=== PATIENT | male | born 1995 | race Caucasian/White ===

== ENCOUNTER 2016-07-14 01:05 | Emergency (ER) | payer OTHER ==
[~2016-07-14] VITALS: Ht 185.4 cm; Wt 84.0 kg
[2016-07-14 02:00] VITALS: BP 148/89; PULSE 86; RESP 18; TEMP 98.5; O2SAT 99
[2016-07-14] MEDS ORDERED: LIDOCAINE HCL 1% 30 ML VIAL INFIL ONE (02:45)
[2016-07-14] MEDS ORDERED: LIDOCAINE HCL 1% 50 ML VIAL INFIL ONE (02:45)
[2016-07-14] MEDS ORDERED: LIDOCAINE 1%/EPINEPHrine 1:100,000 SOLN 30 ML VIAL INFIL ONE (02:45)
[2016-07-14 03:10] VITALS: BP 161/98; PULSE 76; RESP 18; O2SAT 99
--- NOTE | 2016-07-14 03:42 | PD ---
HPI Chief Complaint: Laceration/Skin Injury Time Seen by Provider: 02:32 Travel History International Travel<30 days: No Contact w/Intl Traveler<30days: No Traveled to known affect area: No History of Present Illness HPI Patient is a 21-year-old male who presents to emergency room with complaints of lacerations to his left hand. Patient reports that he cut his hand on a piece of glass 1 hour prior to arrival to the emergency room. Patient reports that he is right-hand dominant. Reports that his tetanus is up-to-date. PFSH Past Medical History Medical History: Denies Significant Hx Diminished Hearing: No Tetanus Vaccination: < 5 Years Influenza Vaccination: No Past Surgical History Surgical History: No Previous Surgery Social History Alcohol Use: No Tobacco Use: No Substance Use: No Allergies-Medications (Allergen,Severity, Reaction): Coded Allergies: No Known Allergies (Unverified , 07/14/16) Reported Meds & Prescriptions Reported Meds & Active Scripts Active Ibuprofen 600 Mg Tab 600 Mg PO Q6H PRN Keflex (Cephalexin) 500 Mg Cap 500 Mg PO Q6H 7 Days Review of Systems General / Constitutional: No: Fever Eyes: No: Visual changes HENT: No: Headaches Cardiovascular: No: Chest Pain or Discomfort Respiratory: No: Shortness of Breath Gastrointestinal: No: Abdominal Pain Genitourinary: No: Dysuria Musculoskeletal: No: Pain Skin: Positive Other (hand laceration), No Rash Neurologic: No: Weakness Psychiatric: No: Depression Endocrine: No: Polydipsia Hematologic/Lymphatic: No: Easy Bruising Physical Exam Narrative GENERAL: Well-nourished, well-developed patient. SKIN: Warm and dry. HEAD: Normocephalic. EYES: No scleral icterus. No injection or drainage. NECK: Supple, trachea midline. No JVD or lymphadenopathy. CARDIOVASCULAR: Regular rate and rhythm without murmurs, gallops, or rubs. RESPIRATORY: Breath sounds equal bilaterally. No accessory muscle use. GASTROINTESTINAL: Abdomen soft, non-tender, nondistended. MUSCULOSKELETAL: No cyanosis, or edema. Left hand: Pulses intact, neurovascularly intact, patient with 2 cm laceration over the knuckle of digit #4, patient with 1 cm laceration to thumb BACK: Nontender without obvious deformity. No CVA tenderness. Data Data Last Documented VS Vital Signs Date Time Temp Pulse Resp B/P Pulse Ox O2 Delivery O2 Flow Rate FiO2 07/14/16 03:10 76 18 161/98 99 Room Air 07/14/16 02:00 98.5 Orders ^ Irrigate (07/14/16 02:32) Lidocaine 1% Inj (50 Ml) (Xylocaine 1% I (07/14/16 02:45) Bacitracin Oint Packet (Bacitracin Oint (07/14/16 04:30) Cephalexin (Keflex) (07/14/16 04:30) MDM Medical Decision Making Medical Screen Exam Complete: Yes Emergency Medical Condition: Yes Interpretation(s) Vital Signs Date Time Temp Pulse Resp B/P Pulse Ox O2 Delivery O2 Flow Rate FiO2 07/14/16 03:10 76 18 161/98 99 Room Air 07/14/16 02:05 18 07/14/16 02:00 98.5 86 18 148/89 99 Differential Diagnosis hand lacerations Narrative Course Patient is a 21-year-old male with complaints of lacerations to his left hand. Tetanus is up-to-date. X-ray of the hand ordered to evaluate for possible foreign body - patient refuses x-ray at this time. Plan to irrigate lacerations and suture lacerations. Laceration repair. Patient will return to emergency room in 48 hours for wound check He will return to emergency room earlier if he develops any signs of infection Suture removal in 7 days Procedures Procedure Narrative LACERATION LOCATION: left hand, left digit #4 knuck and digit #1 LENGTH: 2cm linear laceration to over left knuckle of digit #4, patient with 1cm z shaped laceration to digit #1 NUMBER OF STITCHES/GENA: 9 total single interrupted sutures using 5.0 nylon; 3 sutures over left knuckle digit #4, 6 sutures to digit #1 REPAIR: The area of the laceration was prepped with Betadine and sterilely draped. The laceration was infiltrated with 1%lido. The wound was copiously irrigated and explored without evidence of foreign body, tendon injury or neurovascular injury. The wound was closed using single interrupted sutures. This was a single layer repair. A sterile dressing was applied. The patient was advised to keep the dressing clean and dry. Patient tolerated the procedure well. Diagnosis Primary Impression: Hand laceration Qualified Code: S61.412A - Laceration of left hand without foreign body, initial encounter Patient Instructions: General Instructions Additional Instructions: Please follow-up with your primary care doctor Return to the emergency room in 48 hours if you develop any signs of infection Please keep area laceration clean and apply bacitracin dressings please have sutures removed in 7 days Med/Other Pt SpecificInfo: Prescription(s) given Scripts Ibuprofen 600 Mg [id number] Mg PO Q6H PRN (Pain/Inflammation) #40 TAB Ref 0 Prov:Christina Rodriguez DO 07/14/16 Cephalexin (Keflex)500 Mg [id number] Mg PO Q6H 7 Days Ref 0 Prov:Christina Rodriguez DO 07/14/16 Disposition: 01 DISCHARGE HOME Condition: Stable Christina Rodriguez DO Jul 14, 2016 03:42
[2016-07-14] MEDS ORDERED: IBUP-232 PO (04:19)
[2016-07-14] MEDS ORDERED: CEPH-460 PO (04:19)
[2016-07-14] MEDS ORDERED: CEPHALEXIN MONOHYDRATE 500 MG CAP PO ONE (04:30)
[2016-07-14] MEDS ORDERED: BACITRACIN OINT 0.9 GM PKT TOP ONE (04:30)
[2016-07-14 04:35] VITALS: BP 166/98; PULSE 84; RESP 18; O2SAT 99
== END 2016-07-14 04:50 | disposition home or self-care (01) ==
LOC: PHED 01:05
DX: S61.412A Laceration without foreign body of left hand, initial encounter (principal); W25.XXXA Contact with sharp glass, initial encounter; Y93.9 Activity, unspecified; Y92.9 Unspecified place or not applicable; Y99.9 Unspecified external cause status
CPT/HCPCS: 12002